=== PATIENT | female | born 1990 | race Caucasian/White ===

== ENCOUNTER 2022-07-15 03:05 | Emergency (ER) | payer OTHER ==
[~2022-07-15] VITALS: Ht 152.4 cm; Wt 81.6 kg
[2022-07-15 03:20] VITALS: BP 122/72
--- NOTE | 2022-07-15 03:20 | NUR ---
BIB PARTNER FOR C/O LUE PAIN SINCE 11PM. PATIENT IS AAOX4, AMBULATORY, ABLE TO MAKE NEEDS KNOWN. PLACED COMFORTABLY IN BED. VITALS CHECKED.
--- NOTE | 2022-07-15 03:40 | NUR ---
EKG DONE AT BEDSIDE
== END 2022-07-15 03:50 | disposition home or self-care (01) ==
LOC: ER 03:08
DX: M79.602 Pain in left arm (principal)